=== PATIENT | female | born 1965 | race Caucasian/White ===

== ENCOUNTER 2017-02-22 17:20 | Emergency (ER) | payer MEDICARE, MEDICAID ==
--- NOTE | 2017-02-22 17:47 | EDM.PDOC ---
ED HPI GENERAL MEDICAL PROBLEM - General Stated Complaint: LEFT HAND NUMB Time Seen by Provider: 02/22/17 17:20 Source of Information: Reports: Patient History Limitations: Reports: No limitations - History of Present Illness INITIAL COMMENTS - FREE TEXT/NARRATIVE: 51 years old w f with IDDM and obesity, come to the ed due to numbness at her left lat forearm, radials nerve distribution since this morning. Pt denied trauma, did not sleep on her left arm. Pt had carpal tunnel repair on both wrists in the past, twice at her left wrist. 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 No H/O MS in the family. Onset: today Onset Date: 02/22/17 Onset Time: 07:00 Duration: Hour(s):, Constant, Intermittent Location: Reports: upper extremity, left Quality: Reports: Other (NUMBNESS) Severity: mild - Related Data Allergies Allergy/AdvReac Type Severity Reaction Status Date / Time latex Allergy Cannot Verified 02/22/17 17:35 Remember propoxyphene napsylate Allergy Itching Verified 02/22/17 17:35 [From SuzetteNeha] Home Meds: Home Meds Pregabalin [Lyrica] 150 mg PO BID 10/31/13 [History] Albuterol [Proventil Neb Soln] 3 ml INH Q4HR PRN 04/29/15 [History] Lisinopril 10 mg PO DAILY 04/29/15 [History] atorvaSTATin [Lipitor] 40 mg PO BEDTIME 04/29/15 [History] Acetaminophen with Codeine [Tylenol with Codeine #3 Tablet] 1 - 2 each PO QID PRN 09/11/15 [History] Aspirin [Adult Low Dose Aspirin EC] 81 mg PO DAILY 09/11/15 [History] Insulin Detemir [Levemir Flextouch] 52 units SQ BEDTIME 09/11/15 [History] Pregabalin [Lyrica] 50 mg PO BID 09/11/15 [History] sitaGLIPtin Phosphate [Januvia] 100 mg PO DAILY 09/11/15 [History] Past Medical History Other Cardiovascular History: ENLARGED HEART IN PAST HISTORY - Past Surgical History Other Musculoskeletal Surgeries/Procedures:: carpal tunnel surg Social & Family History - Tobacco Use Smoking Status *Q: Never Smoker Second Hand Smoke Exposure: Yes - Alcohol Use Days Per Week of Alcohol Use: 0 - Recreational Drug Use Recreational Drug Use: No ED ROS GENERAL - Review of Systems Review Of Systems: See Below Constitutional: Reports: no symptoms HEENT: Reports: No symptoms Respiratory: Reports: No Symptoms Cardiovascular: Reports: No symptoms Endocrine: Reports: no symptoms GI/Abdominal: Reports: No symptoms : Reports: no symptoms Musculoskeletal: Reports: no symptoms Skin: Reports: no symptoms Neurological: Reports: Other (numbness left lat forearm) Psychiatric: Reports: No symptoms Hematologic/Lymphatic: Reports: no symptoms Immunologic: Reports: no symptoms ED EXAM, GENERAL - Physical Exam Exam: See Below Exam Limited By: No limitations General Appearance: alert, WD/WN, no apparent distress, obese Eye Exam: bilateral eye: normal inspection Ears: normal external exam, normal canal, hearing grossly normal Ear Exam: bilateral ear: auricle normal, canal normal, TM normal Nose: normal inspection, normal mucosa, no blood Throat/Mouth: Normal inspection, Normal lips, Normal teeth, Normal gums, Normal oropharynx, Normal voice, No airway compromise Head: atraumatic, normocephalic Neck: normal inspection, supple, non-tender, full range of motion Respiratory/Chest: no respiratory distress, lungs clear, normal breath sounds, no accessory muscle use, chest non-tender Cardiovascular: normal peripheral pulses, regular rate, rhythm, no edema, no gallop, no JVD, no murmur, no rub GI/Abdominal: normal bowel sounds, soft, non tender, no organomegaly, no distention, no abnormal bruit, no mass (Female) Exam: Deferred Rectal (Female) Exam: Deferred Back Exam: normal inspection, full range of motion, NT Extremities: normal inspection, normal range of motion, non-tender, normal capillary refill, no pedal edema Neurological: alert, oriented, CN II-XII intact, normal cognition, normal gait, normal reflexes, sensory/motor deficit (sensitivity loss left forearm, radialis distribution) Psychiatric: normal affect, normal mood Skin Exam: Warm, Dry, Intact, Normal color, No rash Lymphatic: no adenopathy Course - Vital Signs Text/Narrative:: 51 years old w f with IDDM and obesity, come to the ed due to numbness at her left lat forearm, radials nerve distribution since this morning. Pt denied trauma, did not sleep on her left arm. Pt had carpal tunnel repair on both wrists in the past, twice at her left wrist. 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 No H/O MS in the family. No N/V/D. Pt did not check her BS in the past 3 days because she run out of glucometer strips. PE: Obesity, parentheses left lat forearm, radialis distribution. Labs: Glucose 560, Tx: Reg Insulin 7 units SQ. Impression: Dehydration, IDDM with Hyperglycemia. Obesity. Parenthesis radialis nerve distribution left arm. Reexam: accu check 451, improved Plan: D/C with instructions Last Recorded V/S: Last Vital Signs Temp 37.2 C 02/22/17 17:20 Pulse 88 02/22/17 17:20 Resp 18 02/22/17 17:20 BP 142/77 H 02/22/17 17:20 Pulse Ox 95 02/22/17 17:20 - Orders/Labs/Meds Labs: Laboratory Tests 02/22/17 02/22/17 02/22/17 Range/Units 17:45 17:45 17:45 WBC 9.6 (4.5-12.0) X10-3/uL RBC 5.10 (3.23-5.20) x10(6)uL Hgb 15.3 (11.5-15.5) g/dL Hct 45.4 (30.0-51.3) % MCV 89.0 (80-96) fL MCH 29.9 (27.7-33.6) pg MCHC 33.6 (32.2-35.4) g/dL RDW 13.1 (11.5-15.5) % Plt Count 227 (125-369) X10(3)uL MPV 9.9 (7.4-10.4) fL Add Manual Diff Yes Neutrophils % (Manual) 88 H (46-82) % Band Neutrophils % 1 (0-6) % Lymphocytes % (Manual) 9 L (13-37) % Monocytes % (Manual) 2 L (4-12) % Sodium 134 L (135-145) mmol/L Potassium 4.5 D (3.5-5.3) mmol/L Chloride 98 L (100-110) mmol/L Carbon Dioxide 27 (23-29) mmol/L BUN 32 H (5-20) mg/dL Creatinine 1.0 (0.6-1.3) mg/dL Est Cr Clr Drug Dosing 72.78 mL/min Estimated GFR (MDRD) 59 L (>60) BUN/Creatinine Ratio 32.0 H (9-20) Glucose 560 H* D (80-116) mg/dL Hemoglobin A1c (4.0-6.0) % Calcium 9.2 (8.6-10.2) mg/dL B-Natriuretic Peptide < 5 (0-100) pg/mL 02/22/17 Range/Units 17:45 WBC (4.5-12.0) X10-3/uL RBC (3.23-5.20) x10(6)uL Hgb (11.5-15.5) g/dL Hct (30.0-51.3) % MCV (80-96) fL MCH (27.7-33.6) pg MCHC (32.2-35.4) g/dL RDW (11.5-15.5) % Plt Count (125-369) X10(3)uL MPV (7.4-10.4) fL Add Manual Diff Neutrophils % (Manual) (46-82) % Band Neutrophils % (0-6) % Lymphocytes % (Manual) (13-37) % Monocytes % (Manual) (4-12) % Sodium (135-145) mmol/L Potassium (3.5-5.3) mmol/L Chloride (100-110) mmol/L Carbon Dioxide (23-29) mmol/L BUN (5-20) mg/dL Creatinine (0.6-1.3) mg/dL Est Cr Clr Drug Dosing mL/min Estimated GFR (MDRD) (>60) BUN/Creatinine Ratio (9-20) Glucose (80-116) mg/dL Hemoglobin A1c 10.9 H (4.0-6.0) % Calcium (8.6-10.2) mg/dL B-Natriuretic Peptide (0-100) pg/mL Meds: Medications Discontinued Medications Generic Name Dose Route Start Last Admin Trade Name Freq PRN Reason Stop Dose Admin Insulin Human Regular 7 unit 02/22/17 18:02 02/22/17 18:09 Humulin R SUBCUT 02/22/17 18:03 7 units ONETIME STA Administration Protocol Departure - Departure Time of Disposition: 19:00 Disposition: Home, Self-Care 01 Condition: good Clinical Impression: Paresthesia Hyperglycemia due to type 2 diabetes mellitus 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 Please come back to the ed if your symptoms get worse acutely.
[2017-02-22] MEDS ORDERED: Insulin Regular, Human 100 Units/ML 3 ML Vial SUBCUT STA (18:02)
[2017-02-22 19:15] VITALS: BP 132/83
== END 2017-02-22 19:13 | disposition home or self-care (01) ==
LOC: FB.ED 17:20
DX: E11.65 Type 2 diabetes mellitus with hyperglycemia (principal); E86.0 Dehydration; R20.9 Unspecified disturbances of skin sensation; E66.9 Obesity, unspecified; Z91.040 Latex allergy status; Z88.8 Allergy status to other drugs, medicaments and biological substances; Z79.82 Long term (current) use of aspirin; Z79.4 Long term (current) use of insulin; Z79.899 Other long term (current) drug therapy
CPT/HCPCS: 36415; 80048; 82962; 83036; 83880; 85025; 96372; 99283; J1815

== ENCOUNTER 2018-03-20 17:06 | Emergency (ER) | payer MEDICARE, MEDICAID ==
[2018-03-20] MEDS ORDERED: Aspirin 81 MG Tab.EC PO ONE ×2 (17:39→17:47)
[2018-03-20] MEDS ORDERED: Aspirin 81 MG Tab.Chew PO ONE ×2 (17:45→17:50)
[2018-03-20] MEDS ORDERED: Isosorbide Mononitrate 30 MG Tab.ER PO ONE ×2 (18:56→18:57)
[2018-03-20] MEDS ORDERED: Potassium Chloride 20 MEQ Tab.ER PO ONE (19:12)
[2018-03-20 19:22] VITALS: BP 132/84
--- NOTE | 2018-03-23 12:04 | CR ---
INDICATION: Chest pain. CHEST: An AP upright view of the chest was obtained portable, 03/20/2018, and compared with 04/29/2015 and 06/19/2012. The heart appeared enlarged. The aorta is slightly tortuous. Overlying EKG leads are noted. A definite active infiltrate or effusion was not identified. Evidence of exogenous obesity is noted. IMPRESSION: 1. Probable increase in heart size - ASHD. 2. Exogenous obesity. MTDD
--- NOTE | 2018-03-24 15:31 | ER ---
DATE SEEN: 03/20/2018 TIME SEEN: The patient was seen at 1540 hours. HISTORY OF PRESENT ILLNESS: This 52-year-old woman comes in with chest pain, onset 0800 hours, this morning. This involved more of her left pectoral region and radiated up to her shoulder, has been on and off through the last 10 hours. Ibuprofen did not make any difference. PAST MEDICAL HISTORY: She has history of asthma, gastritis, hemorrhoids, diabetes, fibromyalgia, kidney stones, and dyslipidemia. CURRENT MEDICATIONS: 1. Liraglutide - dipeptidyl peptidase inhibitor-incretin that increases insulin secretion. 2. Aspirin 81 mg. 3. Albuterol p.r.n. 4. Acetaminophen with codeine. 5. Atorvastatin 40 mg daily. 6. Lyrica 200 mg t.i.d. for her chronic back pain. 7. Lisinopril. 8. Insulin Levemir. The patient has not experienced diaphoresis or shortness of breath with the chest pain. No history of VTEs or long distance driving or airplane or stationary position or lying in bed for 3 days. The patient denies fever. She has a slight cough. She weighs 312 pounds. ALLERGIES: Latex and Darvocet. OTHER PAST MEDICAL HISTORY: Cyst on the kidneys, renal stone, asthma, gastritis, GERD without esophagitis, hemorrhoids, diabetes mellitus caused hyperglycemia. REVIEW OF SYSTEMS: Otherwise negative. PHYSICAL EXAMINATION: VITAL SIGNS: Blood pressure 148/81, heart rate 95, respirations 17, oxygen saturation 98%, and temperature 36.6 degrees centigrade. The patient weighs 141.5 kg. BMI is 44.8. GENERAL: This overweight pleasant woman is attended by her and her daughter. HEENT: PERRLA intact. Pharynx without abnormality. NECK: Supple. LUNGS: Clear without rales or rhonchi. HEART: S1, S2. No murmur. Distant heart sounds because of increased obesity. ABDOMEN: Nontender. No guarding. No abdominal discomfort. EXTREMITIES: Without edema. No tenderness of the vascular structures. IMAGING: EKG sinus rhythm. EKG notes multiple PVCs, but there are no PVCs on the EKG and I crossed that out. There is one premature atrial complex, but not ventricular complexes. Short VA interval of 52 microseconds. Q-waves in II and aVF suggesting marked [place] of indeterminate age. LABORATORY FINDINGS: Hemoglobin 14, white count 5300, PMNs 58, lymphocytes 34, and monos 7. Potassium 2.9 (hypokalemia), BUN 23, creatinine 1.2, GFR 47 with BUN creatinine ratio of 19, no suggestion of dehydration. 364 glucose. Troponin less than 0.017. IMAGING: Chest x-ray without cardiomegaly or infiltrate. ASSESSMENT AND PLAN: 1. Nonspecific chest pain, etiology indeterminate. 2. The patient is at risk for myocardial disease because of her morbid obesity. She is given a tablet of Imdur, 1 tablet, 30 mg daily. Trial for a week. Ten tablets prescribed. 3. Follow up with doctor in a week. Walk 1 mile daily. I advised her that walking 1 mile a day is like walking 1 mile away from her fpc. If she chooses not to do that, she is closer to the fpc at a very early age or premature cardiovascular demise. /[id number] LOWELL/ERIK
== END 2018-03-20 19:35 | disposition home or self-care (01) ==
LOC: FB.ED 17:06
DX: R07.9 Chest pain, unspecified (principal); E66.01 Morbid (severe) obesity due to excess calories; E11.9 Type 2 diabetes mellitus without complications; E78.5 Hyperlipidemia, unspecified; Z91.040 Latex allergy status; Z88.8 Allergy status to other drugs, medicaments and biological substances; Z79.899 Other long term (current) drug therapy; Z68.41 Body mass index [BMI] 40.0-44.9, adult; Z79.82 Long term (current) use of aspirin
CPT/HCPCS: 36415; 71045; 80053; 84484; 85025; 85379; 93005; 99285; A9270

== ENCOUNTER 2019-04-30 10:11 | Emergency (ER) | payer MEDICARE, MEDICAID ==
--- NOTE | 2019-04-30 10:19 | EDM.PDOC ---
ED HPI GENERAL MEDICAL PROBLEM - General Stated Complaint: FACE DROOP Time Seen by Provider: 04/30/19 10:26 Source of Information: Reports: Patient, Family History Limitations: Reports: No Limitations - History of Present Illness INITIAL COMMENTS - FREE TEXT/NARRATIVE: 54 y.o.w.f with H/O HTN and High cholesterol, non smoker, woke up at about 7 am with a right droopy face and right sided weakness right upper and right lower extremity. Pt want to bed last night at about 9 pm with H/A right temp area and blurred vision right eye. omn arrival to the ED she had a right facial droop, unable to hold her right extremities up for more then 2 sec with a right pronator drift. F n and FF test area positive at her right side. She is OX3 Her Temp headache is minor. Her NIH score was 10 as per nurse Ortiz BP was 145/85 RR 18 Pule ox 99% on RA pulse 88 Temp 98.7 Onset Date: 04/29/19 Onset Time: 19:00 Duration: Hour(s):, Intermittent Location: Reports: Head, Upper Extremity, Right, Lower Extremity, Right Quality: Reports: Ache, Dull Severity: Mild Improves with: Reports: Rest Worsens with: Reports: Movement Context: Reports: Other (woke up with ayfacial droop and right sided weakness) Associated Symptoms: Reports: Headaches, Weakness (right upper an lower extremity) - Related Data Allergies Allergy/AdvReac Type Severity Reaction Status Date / Time latex Allergy Cannot Verified 04/30/19 10:59 Remember propoxyphene napsylate Allergy Itching Verified 04/30/19 10:59 [From Mary Beth] Home Meds: Home Meds Lisinopril 10 mg PO DAILY 04/29/15 [History] atorvaSTATin [Lipitor] 40 mg PO BEDTIME 04/29/15 [History] Insulin Detemir [Levemir Flextouch] 52 units SQ BEDTIME 09/11/15 [History] Isosorbide Mononitrate [Imdur] 30 mg PO DAILY #30 tab.er 03/20/18 [Rx] Pregabalin [Lyrica] 200 mg PO TID 03/20/18 [History] .Ozempin 04/30/19 [History] Past Medical History HEENT History: Reports: Impaired Vision Cardiovascular History: Reports: High Cholesterol, Hypertension, Other (See Below) Other Cardiovascular History: enlarged heart 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, COPD [employer]ATE History: Reports: Musculoskeletal History: Reports: Fibromyalgia, Osteoarthritis Psychiatric History: Reports: Anxiety Endocrine/Metabolic History: Reports: Diabetes, Type II - Infectious Disease History Infectious Disease History: Reports: MRSA - Past Surgical History Musculoskeletal Surgical History: Reports: Knee Replacement Other Musculoskeletal Surgeries/Procedures:: coby knee replacement Social & Family History - Family History Family Medical History: Unobtainable - Caffeine Use Caffeine Use: Reports: Soda ED ROS GENERAL - Review of Systems Review Of Systems: See Below Constitutional: Reports: No Symptoms HEENT: Reports: No Symptoms Respiratory: Reports: No Symptoms Cardiovascular: Reports: No Symptoms Endocrine: Reports: No Symptoms GI/Abdominal: Reports: No Symptoms : Reports: No Symptoms Musculoskeletal: Reports: No Symptoms Skin: Reports: No Symptoms Neurological: Reports: Dizziness, Numbness (right face), Paresthesia (rightface) , Trouble Speaking, Weakness (right extremities) Psychiatric: Reports: No Symptoms Hematologic/Lymphatic: Reports: No Symptoms Immunologic: Reports: No Symptoms ED EXAM, NEURO - Physical Exam Exam: See Below Exam Limited By: Physical Impairment General Appearance: Alert, WD/WN, Mild Distress, Obese Eye Exam: Bilateral Eye: Normal Inspection Ears: Normal External Exam Nose: Normal Inspection, Normal Mucosa, No Blood Throat/Mouth: Normal Inspection, Normal Lips, Normal Voice, No Airway Compromise , Other (no teeth) Head Exam: Atraumatic, Normocephalic Neck: Normal Inspection, Supple, Non-Tender Respiratory/Chest: No Respiratory Distress, Lungs Clear, Normal Breath Sounds, Chest Non-Tender Cardiovascular: Normal Peripheral Pulses, Regular Rate, Rhythm, No Edema, No Gallop, No Murmur GI/Abdominal: Normal Bowel Sounds, Soft, Non-Tender, No Organomegaly, No Mass, Pelvis Stable (Female) Exam: Deferred Rectal (Female) Exam: Deferred Neurological: Alert, Ataxia, Abnormal Finger to Nose, Abnormal Sensation (right face), Difficulty Walking Back Exam: Normal Inspection, Full Range of Motion Extremities: Normal Inspection, Normal Range of Motion Psychiatric: Normal Affect, Normal Mood Skin Exam: Warm, Dry, Intact, No Rash EKG INTERPRETATION EKG Date: 04/30/19 Time: 10:45 Rhythm: NSR Rate (Beats/Min): 88 Randall: Normal P-Wave: Present QRS: Normal ST-T: Normal QT: Normal Comparison: NA - No Prior EKG Course - Vital Signs Text/Narrative:: 54 y.o.w.f with H/O HTN and High cholesterol, non smoker, woke up at about 7 am with a right droopy face and right sided weakness right upper and right lower extremity. Pt want to bed last night at about 9 pm with H/A right temp area and blurred vision right eye. omn arrival to the ED she had a right facial droop, unable to hold her right extremities up for more then 2 sec with a right pronator drift. F n and FF test area positive at her right side. She is OX3 Her Temp headache is minor. Her NIH score was 10 as per nurse Ortiz BP was 145/85 RR 18 Pule ox 99% on RA pulse 88 Temp 98.7 PE: WNWD W F wit right sided facial droop, weakness right extremities with a pronator drift R arm. Lat time Nl 7 pm last night. Last food intake 7 pm last night, EOMI, right periorbital/temp discomfort. Imaging: CT Head w/o contrast: NAD as per RAD Labs: CBC nl HDL 38 Cholesterol 212 Chol/HDL 5.6 Tricl 165 K 3.4 BUN 24 Cr 1.2 GFR 43 Gkc 155 Impression: CVA vs TIA Tx: ASA 10.45 am Consultation: Dr. Chavez, Neurologist, [facility]: ASA ok, Send to [facility] Reexam: Pt was ambulating better, articulation was improving Plan: Transfer by EMS to [facility] - Orders/Labs/Meds Labs: Laboratory Tests 04/30/19 04/30/19 04/30/19 Range/Units 10:18 10:25 10:25 WBC 4.7 (4.5-12.0) X10-3/uL RBC 3.93 (3.23-5.20) x10(6)uL Hgb 12.4 (11.5-15.5) g/dL Hct 35.4 (30.0-51.3) % MCV 89.9 (80-96) fL MCH 31.6 (27.7-33.6) pg MCHC 35.1 (32.2-35.4) g/dL RDW 13.1 (11.5-15.5) % Plt Count 190 (125-369) X10(3)uL MPV 8.5 (7.4-10.4) fL Neut % (Auto) 61.2 (46-82) % Lymph % (Auto) 29.8 (13-37) % Cloud % (Auto) 7.8 (4-12) % Eos % (Auto) 0 L (1.0-5.0) % Baso % (Auto) 1 (0-2) % Neut # (Auto) 2.9 (1.6-8.3) # Lymph # (Auto) 1.4 (0.6-5.0) # Cloud # (Auto) 0.4 (0.0-1.3) # Eos # (Auto) 0.0 (0.0-0.8) # Baso # (Auto) 0.0 (0.0-0.2) # ESR 18 (0-20) mm/hr PT 10.0 (8.7-11.1) INR 1.03 (0.89-1.13) Sodium (135-145) mmol/L Potassium (3.5-5.3) mmol/L Chloride (100-110) mmol/L Carbon Dioxide (21-32) mmol/L BUN (7-18) mg/dL Creatinine (0.55-1.02) mg/dL Est Cr Clr Drug Dosing Estimated GFR (MDRD) (>60) BUN/Creatinine Ratio (9-20) Glucose (80-116) mg/dL POC Glucose 159 H D (80-116) mg/dL Calcium (8.6-10.2) mg/dL Triglycerides (15-150) mg/dL Cholesterol (50-200) mg/dL LDL Cholesterol Direct (60-130) mg/dL HDL Cholesterol (40-75) mg/dL Cholesterol/HDL Ratio (0-5) 04/30/19 04/30/19 Range/Units 10:25 10:25 WBC (4.5-12.0) X10-3/uL RBC (3.23-5.20) x10(6)uL Hgb (11.5-15.5) g/dL Hct (30.0-51.3) % MCV (80-96) fL MCH (27.7-33.6) pg MCHC (32.2-35.4) g/dL RDW (11.5-15.5) % Plt Count (125-369) X10(3)uL MPV (7.4-10.4) fL Neut % (Auto) (46-82) % Lymph % (Auto) (13-37) % Cloud % (Auto) (4-12) % Eos % (Auto) (1.0-5.0) % Baso % (Auto) (0-2) % Neut # (Auto) (1.6-8.3) # Lymph # (Auto) (0.6-5.0) # Cloud # (Auto) (0.0-1.3) # Eos # (Auto) (0.0-0.8) # Baso # (Auto) (0.0-0.2) # ESR (0-20) mm/hr PT (8.7-11.1) INR (0.89-1.13) Sodium 145 (135-145) mmol/L Potassium 3.4 L (3.5-5.3) mmol/L Chloride 106 (100-110) mmol/L Carbon Dioxide 28 (21-32) mmol/L BUN 24 H (7-18) mg/dL Creatinine 1.3 H (0.55-1.02) mg/dL Est Cr Clr Drug Dosing TNP Estimated GFR (MDRD) 43 L (>60) BUN/Creatinine Ratio 18.5 (9-20) Glucose 155 H D (80-116) mg/dL POC Glucose (80-116) mg/dL Calcium 9.2 (8.6-10.2) mg/dL Triglycerides 162 H (15-150) mg/dL Cholesterol 212 H (50-200) mg/dL LDL Cholesterol Direct 121 (60-130) mg/dL HDL Cholesterol 38 L (40-75) mg/dL Cholesterol/HDL Ratio 5.6 H (0-5) Meds: Medications Discontinued Medications Generic Name Dose Route Start Last Admin Trade Name Freq PRN Reason Stop Dose Admin Aspirin 324 mg 04/30/19 10:57 04/30/19 10:59 Aspirin PO 04/30/19 10:58 324 mg ONETIME ONE Administration Sodium Chloride 10 ml 04/30/19 11:02 04/30/19 10:20 Saline Flush FLUSH 10 ml ASDIRECTED PRN Administration Keep Vein Open Departure - Departure Time of Disposition: 09:00 Disposition: DC/Tfer to Acute Hospital 02 Condition: Fair Clinical Impression: CVA (cerebral vascular accident) Qualifiers: Laterality of affected vessel: unspecified - Discharge Information Referrals: Nigel Cagle MD [Primary Care Provider] - Forms: ED Department Discharge
[2019-04-30] MEDS ORDERED: Aspirin 81 MG Tab.Chew PO ONE (10:57)
[2019-04-30] MEDS ORDERED: Sodium Chloride 0.9% 10 ML Syringe FLUSH PRN (11:02)
--- NOTE | 2019-04-30 11:16 | CT ---
INDICATION: Right facial droop, right arm weakness. CT HEAD WITHOUT CONTRAST: Spiral examination of the brain was obtained - no comparisons. Total exam DLP = 1,348.07 mGy-cm. Thickening of the lining of the left maxillary antrum is noted. Thickening of the lining of one ethmoidal air cell is noted on the right. Paranasal sinuses were otherwise unremarkable. Mastoid air cells appear to be well-aerated. No cranial abnormality was seen. Calcifications are noted at the left vertebral artery. No shift of midline structures or ventricular abnormalities were identified. No definite abnormal areas of density were identified - no bleeding site or hematoma was seen. IMPRESSION: 1. No acute intracranial abnormality. 2. Calcification noted in left vertebral artery, compatible with atherosclerotic change. 3. Thickening of the lining of the left maxillary antrum and a right ethmoidal air cell. Report was called to Dr. Chan at 1020 hours on 04/30/19. [facility]
== END 2019-04-30 11:10 ==
LOC: FB.ED 10:11
DX: I63.9 Cerebral infarction, unspecified (principal); I10 Essential (primary) hypertension; E78.00 Pure hypercholesterolemia, unspecified; E11.9 Type 2 diabetes mellitus without complications; J44.9 Chronic obstructive pulmonary disease, unspecified; Z79.4 Long term (current) use of insulin; Z79.899 Other long term (current) drug therapy; Z88.8 Allergy status to other drugs, medicaments and biological substances; Z91.040 Latex allergy status
CPT/HCPCS: 36415; 70450; 80048; 80061; 82962; 85025; 85610; 85651; 93005; 99285; A9270

== ENCOUNTER 2019-07-24 11:39 | Emergency (ER) | payer MEDICARE, MEDICAID ==
--- NOTE | 2019-07-24 12:15 | EDM.PDOC ---
ED HPI GENERAL MEDICAL PROBLEM - General Chief Complaint: Respiratory Problem Stated Complaint: SOB, COUGH, CHEST PAIN Time Seen by Provider: 07/24/19 12:12 Source of Information: Reports: Patient History Limitations: Reports: No Limitations - History of Present Illness INITIAL COMMENTS - FREE TEXT/NARRATIVE: Presents with non-productive cough and chest pain only with cough x 2 days. Denies SOB. Patient has h/o COPD and Asthma, but not CAD. Duration: Day(s): (2) Quality: Reports: Dull Severity: Mild - Related Data Allergies Allergy/AdvReac Type Severity Reaction Status Date / Time latex Allergy Cannot Verified 07/24/19 12:12 Remember propoxyphene napsylate Allergy Itching Verified 07/24/19 12:12 [From Mary Beth] Home Meds: Home Meds Lisinopril 10 mg PO DAILY 04/29/15 [History] atorvaSTATin [Lipitor] 40 mg PO BEDTIME 04/29/15 [History] Insulin Detemir [Levemir Flextouch] 52 units SQ BEDTIME 09/11/15 [History] Isosorbide Mononitrate [Imdur] 30 mg PO DAILY #30 tab.er 03/20/18 [Rx] Pregabalin [Lyrica] 200 mg PO TID 03/20/18 [History] .Ozempin 0.5 mg SUBCUT WEEKLY 04/30/19 [History] Past Medical History HEENT History: Reports: Impaired Vision Cardiovascular History: Reports: High Cholesterol, Hypertension, Other (See Below) Other Cardiovascular History: enlarged heart 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, 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: Musculoskeletal History: Reports: Fibromyalgia, Osteoarthritis Psychiatric History: Reports: Anxiety Endocrine/Metabolic History: Reports: Diabetes, Type II - Infectious Disease History Infectious Disease History: Reports: MRSA - Past Surgical History Musculoskeletal Surgical History: Reports: Knee Replacement Other Musculoskeletal Surgeries/Procedures:: coby knee replacement Social & Family History - Family History Family Medical History: Unobtainable - Tobacco Use Tobacco Use Within Last Twelve Months: No - Caffeine Use Caffeine Use: Reports: Soda ED ROS GENERAL - Review of Systems Review Of Systems: ROS reveals no pertinent complaints other than HPI. ED EXAM, GENERAL - Physical Exam Exam: See Below Exam Limited By: No Limitations General Appearance: Alert, WD/WN, No Apparent Distress Ears: Normal External Exam Nose: Normal Inspection Throat/Mouth: No Airway Compromise Head: Atraumatic, Normocephalic Neck: Full Range of Motion Respiratory/Chest: No Respiratory Distress, Lungs Clear Cardiovascular: Regular Rate, Rhythm, No Murmur, Other (left chest wall is tender) GI/Abdominal: No Distention Back Exam: Normal Inspection, Full Range of Motion Extremities: Normal Inspection Neurological: Alert, Normal Cognition Psychiatric: Normal Affect, Normal Mood Skin Exam: Warm, Dry, Intact Course - Vital Signs Text/Narrative:: BP 149/83, HR 82, T 98.3, Sa02 100% RA - Orders/Labs/Meds Orders: Active Orders 24 hr Category Date Time Status EKG Documentation Completion [RC] ASDIRECTED Care 07/24/19 12:02 Active CXR [Chest 2V] [CR] Stat Exams 07/24/19 12:12 Taken EKG 12 Lead [EK] Stat Ther 07/24/19 12:02 Ordered - Radiology Interpretation Free Text/Narrative:: CXR: No acute process (ED provider interpretation). Departure - Departure Time of Disposition: 13:37 Disposition: Home, Self-Care 01 Condition: Good Clinical Impression: Costochondritis, Viral URI - Discharge Information *PRESCRIPTION DRUG MONITORING PROGRAM REVIEWED*: No *COPY OF PRESCRIPTION DRUG MONITORING REPORT IN PATIENT SEVEN: Not Applicable Instructions: Costochondritis, [id number], Upper Respiratory Infection, Adult , [id number] Referrals: Nigel Cagle MD [Primary Care Provider] - Forms: ED Department Discharge Additional Instructions: Take OTC Ibuprofen as needed to control pain. Take OTC Mucinex as needed to control cough. Follow up with your primary physician in 2-3 days if symptoms don 't improve. Return to the ER if symptoms worsen. - My Orders Last 24 Hours: My Active Orders 07/24/19 12:02 EKG Documentation Completion [RC] ASDIRECTED EKG 12 Lead [EK] Stat 07/24/19 12:12 CXR [Chest 2V] [CR] Stat - Assessment/Plan Last 24 Hours: My Active Orders 07/24/19 12:02 EKG Documentation Completion [RC] ASDIRECTED EKG 12 Lead [EK] Stat 07/24/19 12:12 CXR [Chest 2V] [CR] Stat
[2019-07-24 15:34] VITALS: BP 149/84
== END 2019-07-24 14:00 | disposition home or self-care (01) ==
LOC: FB.ED 11:39
DX: M94.0 Chondrocostal junction syndrome [Tietze] (principal); J06.9 Acute upper respiratory infection, unspecified; E11.9 Type 2 diabetes mellitus without complications; J44.9 Chronic obstructive pulmonary disease, unspecified; I10 Essential (primary) hypertension; E78.00 Pure hypercholesterolemia, unspecified; Z79.4 Long term (current) use of insulin; Z79.899 Other long term (current) drug therapy; Z91.040 Latex allergy status; Z88.8 Allergy status to other drugs, medicaments and biological substances
CPT/HCPCS: 71046; 93005; 99285-25

== ENCOUNTER 2019-11-26 19:09 | Emergency (ER) | payer MEDICARE, MEDICAID ==
--- NOTE | 2019-11-26 19:46 | EDM.PDOC ---
ED HPI GENERAL MEDICAL PROBLEM - General Chief Complaint: Upper Extremity Injury/Pain Stated Complaint: hurt arm Time Seen by Provider: 11/26/19 19:15 History Limitations: Reports: No Limitations - History of Present Illness INITIAL COMMENTS - FREE TEXT/NARRATIVE: Patient presented to the ED because of right forearm pain. She apparently got up from the tub, slipped and fell. She landed on her rt forearm. right forearm Pain Score (Numeric/FACES): 10 - Related Data Allergies Allergy/AdvReac Type Severity Reaction Status Date / Time latex Allergy Cannot Verified 07/24/19 12:12 Remember propoxyphene napsylate Allergy Itching Verified 07/24/19 12:12 [From Suzette-N] Home Meds: Home Meds Lisinopril 10 mg PO DAILY 04/29/15 [History] atorvaSTATin [Lipitor] 40 mg PO BEDTIME 04/29/15 [History] Insulin Detemir [Levemir Flextouch] 52 units SQ BEDTIME 09/11/15 [History] Isosorbide Mononitrate [Imdur] 30 mg PO DAILY #30 tab.er 03/20/18 [Rx] Pregabalin [Lyrica] 200 mg PO TID 03/20/18 [History] .Ozempin 0.5 mg SUBCUT WEEKLY 04/30/19 [History] Past Medical History HEENT History: Reports: Impaired Vision Cardiovascular History: Reports: High Cholesterol, Hypertension, Other (See Below) Other Cardiovascular History: enlarged heart 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, 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: Musculoskeletal History: Reports: Fibromyalgia, Osteoarthritis Psychiatric History: Reports: Anxiety Endocrine/Metabolic History: Reports: Diabetes, Type II - Infectious Disease History Infectious Disease History: Reports: MRSA - Past Surgical History Musculoskeletal Surgical History: Reports: Knee Replacement Other Musculoskeletal Surgeries/Procedures:: coby knee replacement Social & Family History - Family History Family Medical History: Unobtainable - Tobacco Use Smoking Status *Q: Never Smoker - Caffeine Use Caffeine Use: Reports: Soda Review of Systems - Review of Systems Review Of Systems: See Below Constitutional: Reports: No Symptoms Eyes: Reports: No Symptoms Ears: Reports: No Symptoms Nose: Reports: No Symptoms Mouth/Throat: Reports: No Symptoms Respiratory: Reports: No Symptoms Cardiovascular: Reports: No Symptoms GI/Abdominal: Reports: No Symptoms Genitourinary: Reports: No Symptoms Musculoskeletal: Reports: No Symptoms Skin: Reports: Bruising ED EXAM, GENERAL - Physical Exam Exam: See Below Exam Limited By: No Limitations Eye Exam: Bilateral Eye: PERRL Nose: Normal Inspection, Normal Mucosa, No Blood Throat/Mouth: Normal Inspection, Normal Lips Head: Atraumatic, Normocephalic Respiratory/Chest: No Respiratory Distress, Lungs Clear, Normal Breath Sounds Cardiovascular: Normal Peripheral Pulses, Regular Rate, Rhythm, No Edema, No Gallop, No JVD GI/Abdominal: Normal Bowel Sounds, Soft, Non-Tender Extremities: Other (tenderness,swelling and bruising right forearm) Course - Vital Signs Last Recorded V/S: Last Vital Signs Temp 36.4 C 11/26/19 19:09 Pulse 90 11/26/19 19:09 Resp 17 11/26/19 19:09 BP 171/88 H 11/26/19 19:09 Pulse Ox 100 11/26/19 19:09 - Orders/Labs/Meds Orders: Active Orders 24 hr Category Date Time Status Forearm 2V Rt [CR] Stat Exams 11/26/19 19:36 Taken Departure - Departure Time of Disposition: 19:45 Disposition: Home, Self-Care 01 Condition: Good Clinical Impression: Contusion - Discharge Information Instructions: Contusion, [id number] Referrals: Sagrario Molina NP [Primary Care Provider] - Forms: ED Department Discharge Additional Instructions: please read discharge instructions on contusion apply ice take ibuprofen 800 mg with tylenol 1000 mg every 8 hours as needed for pain follow up as needed Sepsis Event Note - Evaluation Sepsis Screening Result: No Definite Risk - Focused Exam Vital Signs: Vital Signs Temp Pulse Resp BP Pulse Ox 11/26/19 19:09 36.4 C 90 17 171/88 H 100 Date Exam was Performed: 11/26/19 Time Exam was Performed: 19:47 - My Orders Last 24 Hours: My Active Orders 11/26/19 19:36 Forearm 2V Rt [CR] Stat - Assessment/Plan Last 24 Hours: My Active Orders 11/26/19 19:36 Forearm 2V Rt [CR] Stat
[2019-11-26 22:18] VITALS: BP 140/76; PULSE 89
== END 2019-11-26 19:50 | disposition home or self-care (01) ==
LOC: FB.ED 19:09
DX: S50.11XA Contusion of right forearm, initial encounter (principal); E11.9 Type 2 diabetes mellitus without complications; I10 Essential (primary) hypertension; Z91.040 Latex allergy status; Z88.8 Allergy status to other drugs, medicaments and biological substances; Z79.899 Other long term (current) drug therapy; Z79.4 Long term (current) use of insulin; W01.0XXA Fall on same level from slipping, tripping and stumbling without subsequent striking against object, initial encounter
CPT/HCPCS: 73090-RT; 99282; 99283-25

== ENCOUNTER 2021-05-19 10:50 | Emergency (ER) | payer MEDICARE, MEDICAID ==
[2021-05-19 11:04] VITALS: BP 144/97; PULSE 84
[2021-05-19] MEDS ORDERED: Tamsulosin 0.4 MG Cap.ER PO STA (11:09)
[2021-05-19] MEDS ORDERED: Ondansetron 4 MG Tab.DIS PO STA (11:09)
[2021-05-19] MEDS ORDERED: Morphine 4 MG/ML VIAL IM STA (11:09)
--- NOTE | 2021-05-19 11:15 | EDM.PDOC ---
ED HPI GENERAL MEDICAL PROBLEM - General Chief Complaint: Genitourinary Problem Stated Complaint: KIDNEY STONES Time Seen by Provider: 05/19/21 11:00 Source of Information: Reports: Patient History Limitations: Reports: No Limitations - History of Present Illness INITIAL COMMENTS - FREE TEXT/NARRATIVE: Patient presented to the ED because of left flank pain which started @ 3-4 am. The pain is sharp,9/10 with associated nausea but no vomiting. There is no fever, chills, urinary symptoms. She has a history of kidney stone the last one was 1 yr ago. Left Lower Flank Pain Score (Numeric/FACES): 9 - Related Data Allergies Allergy/AdvReac Type Severity Reaction Status Date / Time latex Allergy Cannot Verified 07/24/19 12:12 Remember propoxyphene napsylate Allergy Itching Verified 07/24/19 12:12 [From Mary Beth] Home Meds: Home Meds Lisinopril 10 mg PO DAILY 04/29/15 [History] atorvaSTATin [Lipitor] 40 mg PO BEDTIME 04/29/15 [History] Hydrocodone/Acetaminophen [Hydrocodon-Acetaminophen 5-325] 1 each PO Q4H PRN #10 tablet 05/19/21 [Rx] Multivitamin 1 tab PO DAILY 05/19/21 [History] Ondansetron [Zofran ODT] 4 mg PO Q4H PRN #5 tab.dis 05/19/21 [Rx] Semaglutide [Ozempic] 1 mg SQ DAILY 05/19/21 [History] Sulfamethoxazole/Trimethoprim [Bactrim Ds Tablet] 1 each PO BID #6 tablet 05/19/21 [Rx] Tamsulosin HCl [Flomax] 0.4 mg PO DAILY #10 cap.er.24h 05/19/21 [Rx] Past Medical History HEENT History: Reports: Impaired Vision Cardiovascular History: Reports: High Cholesterol, Hypertension, Other (See Below) Other Cardiovascular History: enlarged heart 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, COPD Genitourinary History: Reports: Renal Calculus 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: Musculoskeletal History: Reports: Fibromyalgia, Osteoarthritis Psychiatric History: Reports: Anxiety Endocrine/Metabolic History: Reports: Diabetes, Type II - Infectious Disease History Infectious Disease History: Reports: MRSA - Past Surgical History Musculoskeletal Surgical History: Reports: Knee Replacement Other Musculoskeletal Surgeries/Procedures:: coby knee replacement Social & Family History - Family History Family Medical History: No Pertinent Family History - Tobacco Use Tobacco Use Status *Q: Never Tobacco User - Caffeine Use Caffeine Use: Reports: None - Recreational Drug Use Recreational Drug Use: No ED ROS GENERAL - Review of Systems Review Of Systems: See Below Constitutional: Reports: No Symptoms HEENT: Reports: No Symptoms Respiratory: Reports: No Symptoms Cardiovascular: Reports: No Symptoms Endocrine: Reports: No Symptoms GI/Abdominal: Reports: Abdominal Pain, Nausea : Reports: No Symptoms Musculoskeletal: Reports: No Symptoms Skin: Reports: No Symptoms Neurological: Reports: No Symptoms Psychiatric: Reports: No Symptoms ED EXAM, RENAL/ - Physical Exam Exam: See Below Exam Limited By: No Limitations General Appearance: Alert, No Apparent Distress Ears: Normal External Exam, Normal Canal Nose: Normal Inspection, Normal Mucosa, No Blood Throat/Mouth: Normal Inspection, Normal Lips Head: Atraumatic, Normocephalic Neck: Normal Inspection, Supple, Non-Tender, Full Range of Motion Respiratory/Chest: No Respiratory Distress, Lungs Clear, Normal Breath Sounds Cardiovascular: Normal Peripheral Pulses, Regular Rate, Rhythm, No Edema, No Gallop GI/Abdominal: Normal Bowel Sounds, Soft, Other (left CVA T) Back Exam: Normal Inspection, Full Range of Motion Extremities: Normal Inspection, Normal Range of Motion Course - Vital Signs Text/Narrative:: Lab and CT result was reviewed and discussed with patient Refused IVF Morphine 4 mg IM x1 Zofran ODT 4 mg PO x1 Flomax 0.4 mg PO x1 Last Recorded V/S: Last Vital Signs Temp 36.1 C 05/19/21 10:50 Pulse 84 05/19/21 10:50 Resp 20 05/19/21 10:50 BP 144/97 H 05/19/21 10:50 Pulse Ox 98 05/19/21 10:50 - Orders/Labs/Meds Orders: Active Orders 24 hr Category Date Time Status Abdomen Pelvis wo Cont [CT] Stat Exams 05/19/21 11:08 Taken CULTURE URINE [RM] Stat Lab 05/19/21 11:14 Received Labs: Laboratory Tests 05/19/21 05/19/21 05/19/21 Range/Units 11:14 11:35 11:35 WBC 4.8 (3.0-10.3) x10-3/uL RBC 3.82 (3.60-5.20) x10(6)uL Hgb 12.1 (11.4-15.5) g/dL Hct 34.8 (34.2-48.2) % MCV 91.0 (76.7-100.5) fL MCH 31.6 (23.9-33.9) pg MCHC 34.7 (31.9-34.8) g/dL RDW 13.1 (12.3-16.5) % Plt Count 218 (151-488) x10(3)uL MPV 8.1 (7.1-12.4) fL Neut % (Auto) 62.5 (30.8-76.2) % Lymph % (Auto) 28.4 (18.4-52.1) % Robertson % (Auto) 8.2 (4.4-15.7) % Eos % (Auto) 0.1 L (0.6-8.1) % Baso % (Auto) 0.8 (0.2-1.5) % Neut # (Auto) 3.0 (1.5-6.3) x10-3/uL Lymph # (Auto) 1.4 (1.0-4.4) x10-3/uL Robertson # (Auto) 0.4 (0.3-1.0) x10-3/uL Eos # (Auto) 0.0 (0.0-0.8) x10-3/uL Baso # (Auto) 0.0 (0.0-0.1) x10-3/uL Sodium 143 (135-145) mmol/L Potassium 4.4 D (3.5-5.3) mmol/L Chloride 106 (100-110) mmol/L Carbon Dioxide 29 (21-32) mmol/L BUN 33 H (7-18) mg/dL Creatinine 1.5 H (0.55-1.02) mg/dL Est Cr Clr Drug Dosing 45.83 mL/min Estimated GFR (MDRD) 36 L (>60) BUN/Creatinine Ratio 22.0 H (9-20) Glucose 102 (80-116) mg/dL Calcium 9.0 (8.6-10.2) mg/dL Urine Color Yellow (YELLOW) Urine Appearance Slightly cloudy (CLEAR) Urine pH 5.0 (5.0-6.5) Ur Specific [place] 1.015 (1.010-1.025) Urine Protein 30 H (NEGATIVE) mg/dL Urine Glucose (UA) Normal (NORMAL) mg/dL Urine Ketones Negative (NEGATIVE) mg/dL Urine Occult Blood Large H (NEGATIVE) Urine Nitrite Negative (NEGATIVE) Urine Bilirubin Negative (NEGATIVE) Urine Urobilinogen Normal (NEGATIVE) mg/dL Ur Leukocyte Esterase Small H (NEGATIVE) U Hyaline Cast (Auto) Occasional H (NS) Urine RBC 20-30 H (0-5) Urine WBC 20-30 H (0-5) Ur Squamous Epith Cells Occasional (NS,R,O) Urine Bacteria Few H (NS) Urine Mucus Few H (NS) Meds: Medications Discontinued Medications Generic Name Dose Route Start Last Admin Trade Name Freq PRN Reason Stop Dose Admin Morphine Sulfate 4 mg 05/19/21 11:05/19/21 11:33 Morphine 4 Mg/Ml Vial IM 05/19/21 11:10 4 mg NOW STA Administration Ondansetron HCl 4 mg 05/19/21 11:05/19/21 11:32 Ondansetron 4 Mg Tab.Dis PO 05/19/21 11:10 4 mg NOW STA Administration Tamsulosin HCl 0.4 mg 05/19/21 11:09 05/19/21 11:30 Tamsulosin 0.4 Mg Cap.Er PO 05/19/21 11:10 0.4 mg NOW STA Administration Departure - Departure Time of Disposition: 12:20 Disposition: Home, Self-Care 01 Condition: Good Clinical Impression: Nephrolithiasis, UTI (urinary tract infection), Cholelithiasis, Kidney stone, UTI, Urinary tract infectious disease - Discharge Information Prescriptions: Sulfamethoxazole/Trimethoprim [Bactrim Ds Tablet] 1 each PO BID #6 tablet Tamsulosin HCl [Flomax] 0.4 mg PO DAILY #10 cap.er.24h Hydrocodone/Acetaminophen [Hydrocodon-Acetaminophen 5-325] 1 each PO Q4H PRN #10 tablet PRN Reason: Pain Ondansetron [Zofran ODT] 4 mg PO Q4H PRN #5 tab.dis PRN Reason: Nausea Instructions: Cholelithiasis, Kidney Stones, [id number], Urinary Tract Inf ection, Adult, [id number] Referrals: Nigel Cagle MD [Primary Care Provider] - Forms: ED Department Discharge Additional Instructions: Please read discharge instructions on kidney stone,UTI, gallbladder stone Increase oral fluids at least 2 liters a days Flomax 1 tablet daily until you pass out the stone Hydrocodone 5 mg, take 1-2 tablets every 4-6 hours as needed for pain Bactrim DS twice daily for 3 days Follow up if your pain persist Sepsis Event Note (ED) - Evaluation Sepsis Screening Result: No Definite Risk - Focused Exam Vital Signs: Vital Signs Temp Pulse Resp BP Pulse Ox 05/19/21 10:50 36.1 C 84 20 144/97 H 98 - My Orders Last 24 Hours: My Active Orders 05/19/21 11:08 Abdomen Pelvis wo Cont [CT] Stat 05/19/21 11:14 CULTURE URINE [RM] Stat - Assessment/Plan Last 24 Hours: My Active Orders 05/19/21 11:08 Abdomen Pelvis wo Cont [CT] Stat 05/19/21 11:14 CULTURE URINE [RM] Stat
== END 2021-05-19 12:30 | disposition home or self-care (01) ==
LOC: FB.ED 10:50
DX: N20.0 Calculus of kidney (principal); K80.50 Calculus of bile duct without cholangitis or cholecystitis without obstruction; N39.0 Urinary tract infection, site not specified; E78.00 Pure hypercholesterolemia, unspecified; I10 Essential (primary) hypertension; J44.9 Chronic obstructive pulmonary disease, unspecified; E11.9 Type 2 diabetes mellitus without complications; Z91.040 Latex allergy status; Z88.8 Allergy status to other drugs, medicaments and biological substances
CPT/HCPCS: 36415; 74176; 80048; 81001; 85025; 87086; 96372; 99283; 99284-25; A9270-GY; J2270

== ENCOUNTER 2021-06-09 19:55 | Emergency (ER) | payer MEDICARE, MEDICAID ==
[2021-06-09] MEDS ORDERED: Ondansetron 4 MG Tab.DIS PO ONE (19:56)
[2021-06-09] MEDS ORDERED: Acetaminophen/HYDROcodone 325-5 MG Tab PO ONE (19:56)
[2021-06-09] MEDS ORDERED: Sodium Chloride 0.9% 10 ML Syringe FLUSH PRN (20:21)
--- NOTE | 2021-06-09 20:21 | EDM.PDOC ---
ED HPI GENERAL MEDICAL PROBLEM - General Stated Complaint: sharp pain in right side Time Seen by Provider: 06/09/21 20:15 Source of Information: Reports: Patient History Limitations: Reports: No Limitations - History of Present Illness INITIAL COMMENTS - FREE TEXT/NARRATIVE: 56-year-old female who reports she has been having pain in her right upper quadrant, right flank and right mid back since Friday of last week. She was seen on Friday of last week by her primary provider and was felt to be having biliary colic related to her cholelithiasis and was referred to see Dr. Sun. The patient reports that since then she has had intermittent vomiting and continuing pain in her right upper quadrant and going to her right back. She reports the pain seems to be getting worse with time and she currently has pain that she rates as a 10/10. She had vomiting times one today but vomiting 2 yesterday she also reports she's had diarrhea 10-12 today. She did report a fever up to 101.3F on Friday of last week but none since that time. She has had no cough or difficulty breathing. She has had decreased oral intake and reports that her pain seems to be worse when she eats or drinks and she also has worsening diarrhea after trying to do either of these. The pain is a sharp pain and a sore pain. It does seem to begin in her right upper quadrant and radiated around to her right mid back. She states that she was given Tylenol #3 for her pain but she has run out of that medication. There are no other associated signs or symptoms. There are no other modifying factors. 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.) Right Upper Abdomen Pain Score (Numeric/FACES): 10 - Related Data Allergies Allergy/AdvReac Type Severity Reaction Status Date / Time latex Allergy Cannot Verified 06/09/21 20:11 Remember propoxyphene napsylate Allergy Itching Verified 06/09/21 20:11 [From Darvocet-N] Home Meds: Home Meds atorvaSTATin [Lipitor] 40 mg PO BEDTIME 04/29/15 [History] Hydrocodone/Acetaminophen [Hydrocodon-Acetaminophen 5-325] 1 each PO Q4H PRN #10 tablet 05/19/21 [Rx] Gabapentin [Neurontin] 100 mg PO BID 06/09/21 [History] Hydrocodone/Acetaminophen [Hydrocodon-Acetaminophen 5-325] 1 - 2 tab PO Q6H PRN #8 tablet 06/09/21 [Rx] Ondansetron [Zofran ODT] 4 mg PO Q6H PRN #6 tab.dis 06/09/21 [Rx] Semaglutide [Ozempic] 1 mg SQ WEEKLY 06/09/21 [History] Zolpidem Tartrate [Zolpidem Tartrate ER] 6.25 mg PO BEDTIME 06/09/21 [History] amLODIPine [Norvasc] 5 mg PO DAILY 06/09/21 [History] Past Medical History HEENT History: Reports: Impaired Vision Cardiovascular History: Reports: High Cholesterol, Hypertension, Other (See Below) Other Cardiovascular History: enlarged heart 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, COPD Genitourinary History: Reports: Renal Calculus Musculoskeletal History: Reports: Fibromyalgia, Osteoarthritis Psychiatric History: Reports: Anxiety, Depression Endocrine/Metabolic History: Reports: Diabetes, Type II - Infectious Disease History Infectious Disease History: Reports: MRSA - Past Surgical History Musculoskeletal Surgical History: Reports: Carpal Tunnel (Bilateral), Knee Replacement Other Musculoskeletal Surgeries/Procedures:: coby knee replacement Social & Family History - Tobacco Use Tobacco Use Status *Q: Unknown Ever Used Tobacco (Nonsmoker) - Caffeine Use Caffeine Use: Reports: Soda - Alcohol Use Alcohol Use History: No - Living Situation & Occupation Living situation: Reports: Social History Comment: 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 ED ROS GENERAL - Review of Systems Review Of Systems: See Below Constitutional: Reports: Fever (Earlier this week as mentioned above.), Malaise, Fatigue. Denies: Chills HEENT: Denies: Throat Pain, Throat Swelling Respiratory: Denies: Shortness of Breath, Cough Cardiovascular: Denies: Chest Pain, Palpitations Endocrine: Reports: Fatigue GI/Abdominal: Reports: Abdominal Pain, Diarrhea, Nausea, Vomiting : Reports: Flank Pain (On the right and in the right mid back.). Denies: Dysuria (He does have some intermittent pain with urination but nothing persistent.) Musculoskeletal: Reports: Back Pain Skin: Denies: Diaphoresis, Rash Neurological: Denies: Dizziness, Headache Hematologic/Lymphatic: Denies: Easy Bleeding, Easy Bruising ED EXAM, GI/ABD - Physical Exam Exam: See Below Exam Limited By: No Limitations General Appearance: Alert, Moderate Distress (Appears in some pain.), Obese Eyes: Bilateral: Normal Appearance (Sclera are anicteric.), EOMI Ears: Normal External Exam, Hearing Grossly Normal Nose: Normal Inspection, Normal Mucosa, No Blood Throat/Mouth: Normal Lips, Normal Voice, No Airway Compromise, Other (Dry mucous membranes.) Head: Atraumatic, Normocephalic Neck: Normal Inspection, Supple, Non-Tender, Full Range of Motion Respiratory/Chest: No Respiratory Distress, Lungs Clear, Normal Breath Sounds, No Accessory Muscle Use, Chest Non-Tender Cardiovascular: Normal Peripheral Pulses, Regular Rate, Rhythm, No Murmur GI/Abdominal Exam: Normal Bowel Sounds, Soft, No Mass, Tender (In the right upper quadrant and right flank) Back Exam: Normal Inspection, CVA Tenderness (R) Extremities: Normal Inspection, Normal Range of Motion, Non-Tender, No Pedal Edema, Normal Capillary Refill Neurological: Alert, Oriented, CN II-XII Intact, Normal Cognition, No Motor/Sensory Deficits Psychiatric: Normal Affect Skin Exam: Warm, Dry, Intact, Normal Color, No Rash Course - Vital Signs Last Recorded V/S: Last Vital Signs Temp 36.1 C 06/09/21 23:19 Pulse 86 06/09/21 23:19 Resp 18 06/09/21 23:19 BP 150/90 H 06/09/21 23:19 Pulse Ox 98 06/09/21 23:19 - Orders/Labs/Meds Orders: Active Orders 24 hr Category Date Time Status CULTURE URINE [RM] Stat Lab 06/09/21 20:30 Received Peripheral IV Insertion Adult [OM.PC] Routine Oth 06/09/21 20:21 Ordered Labs: Laboratory Tests 06/09/21 06/09/21 06/09/21 Range/Units 20:30 20:40 20:50 WBC 5.6 (3.0-10.3) x10-3/uL RBC 3.76 (3.60-5.20) x10(6)uL Hgb 11.9 (11.4-15.5) g/dL Hct 34.6 (34.2-48.2) % MCV 91.9 (76.7-100.5) fL MCH 31.7 (23.9-33.9) pg MCHC 34.5 (31.9-34.8) g/dL RDW 13.3 (12.3-16.5) % Plt Count 238 (151-488) x10(3)uL MPV 8.0 (7.1-12.4) fL Neut % (Auto) 63.8 (30.8-76.2) % Lymph % (Auto) 28.6 (18.4-52.1) % [place] % (Auto) 6.9 (4.4-15.7) % Eos % (Auto) 0.1 L (0.6-8.1) % Baso % (Auto) 0.6 (0.2-1.5) % Neut # (Auto) 3.6 (1.5-6.3) x10-3/uL Lymph # (Auto) 1.6 (1.0-4.4) x10-3/uL [place] # (Auto) 0.4 (0.3-1.0) x10-3/uL Eos # (Auto) 0.0 (0.0-0.8) x10-3/uL Baso # (Auto) 0.0 (0.0-0.1) x10-3/uL Sodium (135-145) mmol/L Potassium (3.5-5.3) mmol/L Chloride (100-110) mmol/L Carbon Dioxide (21-32) mmol/L BUN (7-18) mg/dL Creatinine (0.55-1.02) mg/dL Est Cr Clr Drug Dosing mL/min Estimated GFR (MDRD) (>60) BUN/Creatinine Ratio (9-20) Glucose (80-116) mg/dL Calcium (8.6-10.2) mg/dL Magnesium (1.8-2.5) mg/dL Total Bilirubin (0.1-1.3) mg/dL AST (5-25) IU/L ALT (12-36) U/L Alkaline Phosphatase (56-112) IU/L C-Reactive Protein < 0.2 L (0.5-0.9) mg/dL Total Protein (6.0-8.0) g/dL Albumin (3.5-5.2) g/dL Globulin g/dL Albumin/Globulin Ratio Lipase (73-393) U/L Urine Color Yellow (YELLOW) Urine Appearance Clear (CLEAR) Urine pH 5.0 (5.0-6.5) Ur Specific [place] 1.020 (1.010-1.025) Urine Protein 30 H (NEGATIVE) mg/dL Urine Glucose (UA) Normal (NORMAL) mg/dL Urine Ketones 15 H (NEGATIVE) mg/dL Urine Occult Blood Large H (NEGATIVE) Urine Nitrite Negative (NEGATIVE) Urine Bilirubin Negative (NEGATIVE) Urine Urobilinogen Normal (NEGATIVE) mg/dL Ur Leukocyte Esterase Large H (NEGATIVE) Urine RBC 0-5 (0-5) Urine WBC 10-20 H (0-5) Ur Squamous Epith Cells Few H (NS,R,O) Urine Bacteria Rare H (NS) 06/09/21 06/09/21 Range/Units 20:50 20:50 WBC (3.0-10.3) x10-3/uL RBC (3.60-5.20) x10(6)uL Hgb (11.4-15.5) g/dL Hct (34.2-48.2) % MCV (76.7-100.5) fL MCH (23.9-33.9) pg MCHC (31.9-34.8) g/dL RDW (12.3-16.5) % Plt Count (151-488) x10(3)uL MPV (7.1-12.4) fL Neut % (Auto) (30.8-76.2) % Lymph % (Auto) (18.4-52.1) % [place] % (Auto) (4.4-15.7) % Eos % (Auto) (0.6-8.1) % Baso % (Auto) (0.2-1.5) % Neut # (Auto) (1.5-6.3) x10-3/uL Lymph # (Auto) (1.0-4.4) x10-3/uL [place] # (Auto) (0.3-1.0) x10-3/uL Eos # (Auto) (0.0-0.8) x10-3/uL Baso # (Auto) (0.0-0.1) x10-3/uL Sodium 145 (135-145) mmol/L Potassium 3.8 (3.5-5.3) mmol/L Chloride 107 (100-110) mmol/L Carbon Dioxide 30 (21-32) mmol/L BUN 31 H (7-18) mg/dL Creatinine 1.7 H (0.55-1.02) mg/dL Est Cr Clr Drug Dosing 37.72 mL/min Estimated GFR (MDRD) 31 L (>60) BUN/Creatinine Ratio 18.2 (9-20) Glucose 129 H (80-116) mg/dL Calcium 9.1 (8.6-10.2) mg/dL Magnesium 2.2 (1.8-2.5) mg/dL Total Bilirubin 0.5 (0.1-1.3) mg/dL AST 17 D (5-25) IU/L ALT 34 D (12-36) U/L Alkaline Phosphatase 60 (56-112) IU/L C-Reactive Protein (0.5-0.9) mg/dL Total Protein 6.8 (6.0-8.0) g/dL Albumin 3.9 (3.5-5.2) g/dL Globulin 2.9 g/dL Albumin/Globulin Ratio 1.3 Lipase 120 (73-393) U/L Urine Color (YELLOW) Urine Appearance (CLEAR) Urine pH (5.0-6.5) Ur Specific [place] (1.010-1.025) Urine Protein (NEGATIVE) mg/dL Urine Glucose (UA) (NORMAL) mg/dL Urine Ketones (NEGATIVE) mg/dL Urine Occult Blood (NEGATIVE) Urine Nitrite (NEGATIVE) Urine Bilirubin (NEGATIVE) Urine Urobilinogen (NEGATIVE) mg/dL Ur Leukocyte Esterase (NEGATIVE) Urine RBC (0-5) Urine WBC (0-5) Ur Squamous Epith Cells (NS,R,O) Urine Bacteria (NS) Meds: Medications Discontinued Medications Generic Name Dose Route Start Last Admin Trade Name Freq PRN Reason Stop Dose Admin Hydromorphone HCl 1 mg 06/09/21 20:34 06/09/21 20:50 Hydromorphone 2 Mg/Ml Sdv IVPUSH 06/09/21 20:35 1 mg ONETIME ONE Administration Hydromorphone HCl 1 mg 06/09/21 21:56 06/09/21 22:13 Hydromorphone 2 Mg/Ml Sdv IVPUSH 06/09/21 21:57 1 mg ONETIME ONE Administration Sodium Chloride 1,000 mls @ 999 mls/hr 06/09/21 20:34 06/09/21 20:45 Normal Saline IV 06/09/21 21:34 999 mls/hr .BOLUS ONE Administration Sodium Chloride 1,000 mls @ 125 mls/hr 06/09/21 20:45 06/09/21 21:50 Normal Saline IV 125 mls/hr ASDIRECTED JEAN Administration Ondansetron HCl 4 mg 06/09/21 20:34 06/09/21 20:52 Ondansetron 4 Mg/2 Ml Sdv IVPUSH 06/09/21 20:35 4 mg ONETIME ONE Administration Sodium Chloride 10 ml 06/09/21 20:21 Sodium Chloride 0.9% 10 Ml Syringe FLUSH ASDIRECTED PRN Keep Vein Open - Re-Assessments/Exams Free Text/Narrative Re-Assessment/Exam: 06/09/21 21:48: All of the patient's blood tests were reassuringly normal or unchanged except for creatinine which is slightly increased from previous. With her vomiting and diarrhea, this creatinine elevation is probably due to dehydration. She has received a 1 L bolus of normal saline IV and she has also received Dilaudid 1 mg IV and Zofran 4 mg IV. She does feel somewhat improved after this but her pain is still at an 8/10 level. Her abdomen remains soft that she is tender to palpation in her right upper quadrant. There is no mass. I will give the patient another 1 mg dose of Dilaudid IV. I have also ordered a CRP to be added to her labs. Without any elevation in her LFTs, lipase or inflammatory markers, I would feel that control of her pain and a number of pain medications with some antinausea medications with discharge to follow-up with Dr. Sun as scheduled on 06/12/2021 would be appropriate. I discussed this with the patient and she would be agreeable to this plan. She also had a urinalysis that again met criteria for culture. I set it up for culture but initially I had recommended to the patient that we do a catheterized urinary specimen to get a better and glass cleaner specimen for culture but she refused this. 06/09/21 22:50: Patient now reports that her pain is much improved. It is now down to a 2-3/10. She does appear to be much more comfortable. I will plan on giving the patient a take home pack of hydrocodone 5/325 and Zofran 4 mg ODT. I'll also give her limited number prescription of both of these as well. She is to keep her follow-up appointment with Dr. Sun on 06/12/2021. Precautions and reasons for return to the emergency department were discussed with the patient while she was in the emergency department and were detailed in the patient's discharge instructions. Departure - Departure Time of Disposition: 22:57 Disposition: Home, Self-Care 01 Condition: Good (Improved) Clinical Impression: Biliary colic, Dehydration - Discharge Information Prescriptions: Hydrocodone/Acetaminophen [Hydrocodon-Acetaminophen 5-325] 1 - 2 tab PO Q6H PRN #8 tablet PRN Reason: Moderate to severe pain Ondansetron [Zofran ODT] 4 mg PO Q6H PRN #6 tab.dis PRN Reason: Nausea or vomiting Instructions: Biliary Colic, Adult, Nausea and Vomiting, Adult, [id number], Dehydration, Adult, [id number], Pain Medicine Instructions, [id number] Referrals: PCP,None [Primary Care Provider] - Forms: ED Department Discharge Additional Instructions: All of your blood tests were reassuring or unchanged from previous except for your creatinine which measures kidney function and it was slightly worse than before. I think this represents dehydration. We corrected this somewhat by giving you IV fluids. I feel that your symptoms are most probably from gallstones. You do not appear to have a serious infection or a problem that needs intervention emergently. You do need to keep your appointment with Dr. Sun on 06/12/2021. You need to increase your fluid intake. Medication as prescribed (hydrocodone 5/325, Zofran 4 mg ODT). Back to the emergency department for marked increase in pain, unrelenting vomiting, fever or any other concerning signs or symptoms. Sepsis Event Note (ED) - Focused Exam Vital Signs: Vital Signs Temp Pulse Resp BP Pulse Ox 06/09/21 23:19 36.1 C 86 18 150/90 H 98 06/09/21 19:55 36.6 C 91 18 142/84 H 97 - My Orders Last 24 Hours: My Active Orders 06/09/21 20:21 Peripheral IV Insertion Adult [OM.PC] Routine 06/09/21 20:30 CULTURE URINE [RM] Stat - Assessment/Plan Last 24 Hours: My Active Orders 06/09/21 20:21 Peripheral IV Insertion Adult [OM.PC] Routine 06/09/21 20:30 CULTURE URINE [RM] Stat
[2021-06-09] MEDS ORDERED: HYDROmorphone 2 MG/ML SDV IVPUSH ONE ×2 (20:34→21:56)
[2021-06-09] MEDS ORDERED: Ondansetron 4 MG/2 ML SDV IVPUSH ONE (20:34)
[2021-06-09] MEDS ORDERED: Sodium Chloride 0.9% 1,000 ML IV ONE (20:34)
[2021-06-09] MEDS ORDERED: Sodium Chloride 0.9% 1,000 ML IV SCH (20:45)
[2021-06-09 23:27] VITALS: BP 150/90; PULSE 86
== END 2021-06-09 23:20 | disposition home or self-care (01) ==
LOC: FB.ED 19:55
DX: K80.50 Calculus of bile duct without cholangitis or cholecystitis without obstruction (principal); E86.0 Dehydration; E78.00 Pure hypercholesterolemia, unspecified; I10 Essential (primary) hypertension; J44.9 Chronic obstructive pulmonary disease, unspecified; E11.9 Type 2 diabetes mellitus without complications; Z91.040 Latex allergy status; Z88.8 Allergy status to other drugs, medicaments and biological substances; Z79.899 Other long term (current) drug therapy
CPT/HCPCS: 36415; 80053; 81001; 83690; 83735; 85025; 86140; 87086; 96374; 96375; 96376; 99284; A9270; J1170; J2405; J7030

== ENCOUNTER 2021-06-16 23:45 | Emergency (ER) | payer MEDICARE, MEDICAID ==
[2021-06-16] MEDS ORDERED: HYDROmorphone 2 MG/ML SDV IM ONE (23:57)
--- NOTE | 2021-06-17 00:03 | EDM.PDOC ---
ED HPI GENERAL MEDICAL PROBLEM - General Stated Complaint: GULL STONES Time Seen by Provider: 06/17/21 00:01 Source of Information: Reports: Patient History Limitations: Reports: No Limitations - History of Present Illness INITIAL COMMENTS - FREE TEXT/NARRATIVE: Mare complains of RUQ abd pain. Moderate to severe pain,associated with dyspepsia. She has gallstones and is due to have them removed on Friday. no other systemic symptoms,no vomiting. - Related Data Allergies Allergy/AdvReac Type Severity Reaction Status Date / Time latex Allergy Cannot Verified 06/09/21 20:11 Remember propoxyphene napsylate Allergy Itching Verified 06/09/21 20:11 [From Darvocet-N] Home Meds: Home Meds atorvaSTATin [Lipitor] 40 mg PO BEDTIME 04/29/15 [History] Hydrocodone/Acetaminophen [Hydrocodon-Acetaminophen 5-325] 1 each PO Q4H PRN #10 tablet 05/19/21 [Rx] Gabapentin [Neurontin] 100 mg PO BID 06/09/21 [History] Hydrocodone/Acetaminophen [HYDROcodone-Acetaminophen 5-325 MG] 1 - 2 tab PO Q6H PRN #8 tablet 06/09/21 [Rx] Ondansetron [Zofran ODT] 4 mg PO Q6H PRN #6 tab.dis 06/09/21 [Rx] Semaglutide [Ozempic] 1 mg SQ WEEKLY 06/09/21 [History] Zolpidem Tartrate [Zolpidem Tartrate ER] 6.25 mg PO BEDTIME 06/09/21 [History] amLODIPine [Norvasc] 5 mg PO DAILY 06/09/21 [History] Past Medical History HEENT History: Reports: Impaired Vision Cardiovascular History: Reports: High Cholesterol, Hypertension, Other (See Below) Other Cardiovascular History: enlarged heart 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, COPD Genitourinary History: Reports: Renal Calculus, Renal Disease Other Genitourinary History: Recent dx of Stage IV kidney disease. 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: Musculoskeletal History: Reports: Fibromyalgia, Osteoarthritis Psychiatric History: Reports: Anxiety, Depression Endocrine/Metabolic History: Reports: Diabetes, Type II - Infectious Disease History Infectious Disease History: Reports: MRSA - Past Surgical History Musculoskeletal Surgical History: Reports: Carpal Tunnel (Bilateral), Knee Replacement Social & Family History - Family History Family Medical History: No Pertinent Family History - Caffeine Use Caffeine Use: Reports: None - Living Situation & Occupation Living situation: Reports: ED ROS GENERAL - Review of Systems Review Of Systems: Comprehensive ROS is negative, except as noted in HPI. ED EXAM, GI/ABD - Physical Exam Exam: See Below Exam Limited By: No Limitations General Appearance: Alert, WD/WN, No Apparent Distress Respiratory/Chest: No Respiratory Distress GI/Abdominal Exam: Normal Bowel Sounds, Soft, Tender (RLQ). No: Non-Tender, Rebound Course - Orders/Labs/Meds Meds: Medications Discontinued Medications Generic Name Dose Route Start Last Admin Trade Name Freq PRN Reason Stop Dose Admin Hydromorphone HCl 2 mg 06/16/21 23:57 06/17/21 00:05 Hydromorphone 2 Mg/Ml Sdv IM 06/16/21 23:58 2 mg ONETIME ONE Administration Departure - Departure Time of Disposition: 00:59 Disposition: Home, Self-Care 01 Clinical Impression: Biliary colic - Discharge Information Instructions: Cholelithiasis Referrals: Angela Og PA [Primary Care Provider] - (PRN) Care Plan Goals: You were given a dose of Dilaudid this evening for pain control. Take Tylenol as needed. Continue with plans for surgery this coming week. Return to ER as needed. - Problem List & Annotations (1) Biliary colic SNOMED Code(s): 24467137 Code(s): K80.50 - CALCULUS OF BILE DUCT W/O CHOLANGITIS OR CHOLECYST W/O OBST Status: Acute Current Visit: No - Problem List Review Problem List Initiated/Reviewed/Updated: Yes - Assessment/Plan Plan: Dilaudid 2 mg IM
[2021-06-17 01:33] VITALS: PULSE 88
[2021-06-17 01:34] VITALS: BP 156/95
== END 2021-06-17 00:15 | disposition home or self-care (01) ==
LOC: FB.ED 23:45
DX: K80.50 Calculus of bile duct without cholangitis or cholecystitis without obstruction (principal); E78.00 Pure hypercholesterolemia, unspecified; I12.9 Hypertensive chronic kidney disease with stage 1 through stage 4 chronic kidney disease, or unspecified chronic kidney disease; E11.22 Type 2 diabetes mellitus with diabetic chronic kidney disease; N18.4 Chronic kidney disease, stage 4 (severe); J44.9 Chronic obstructive pulmonary disease, unspecified; M19.90 Unspecified osteoarthritis, unspecified site; Z91.040 Latex allergy status; Z88.8 Allergy status to other drugs, medicaments and biological substances; Z79.899 Other long term (current) drug therapy
CPT/HCPCS: 96372; 99283; J1170

== ENCOUNTER 2021-06-19 09:47 | Day surgery (SDC) | payer MEDICARE, MEDICAID ==
[2021-06-19] MEDS ORDERED: Rocuronium 50 MG/5 ML Vial IV ONE (09:48)
[2021-06-19] MEDS ORDERED: Lactated Ringers 1,000 ML IV ONE (09:48)
[2021-06-19] MEDS ORDERED: Lidocaine 2% 5 ML SDV INJECT ONE (09:48)
[2021-06-19] MEDS ORDERED: ePHEDrine 50 MG/ML SDV IV ONE (09:48)
[2021-06-19] MEDS ORDERED: Ondansetron 4 MG/2 ML SDV IVPUSH ONE (09:48)
[2021-06-19] MEDS ORDERED: Midazolam 1 MG/ML 2 ML SDV IV ONE (09:48)
[2021-06-19] MEDS ORDERED: Propofol 200 MG/20 ML SDV IV ONE (09:48)
[2021-06-19] MEDS ORDERED: Glycopyrrolate 0.2 MG/ML 5 ML MDV IV ONE (09:48)
[2021-06-19] MEDS ORDERED: Dexamethasone 4 MG/ML 5 ML MDV IVPUSH ONE (09:48)
[2021-06-19] MEDS ORDERED: Neostigmine Methylsulfate 10 MG/10 ML MDV IVPUSH ONE (09:48)
[2021-06-19] MEDS ORDERED: fentaNYL 100 MCG/2 ML SDV IV ONE (09:48)
[2021-06-19] MEDS ORDERED: Succinylcholine 200 MG/10 ML MDV IV ONE (09:48)
[2021-06-19] MEDS ORDERED: HYDROmorphone 2 MG/ML SDV IV ONE (09:48)
[2021-06-19] MEDS ORDERED: Lactated Ringers 1,000 ML IV SCH (10:00)
[2021-06-19] MEDS ORDERED: Sodium Chloride 0.9% 10 ML Syringe FLUSH PRN (10:00)
--- NOTE | 2021-06-19 12:12 | PCM.HPR ---
H & P Addendum review - H & P Addendum Review Date of Original H & P: 06/12/21 Date Reviewed: 06/19/21 Time Reviewed: 12:12 Patient was Examined: No Changes
--- NOTE | 2021-06-19 14:25 | PCM.OPNOTE ---
- General Post-Op/Procedure Note Date of Surgery/Procedure: 06/19/21 Operative Procedure(s): Lap Daniela Findings: Dictated Pre Op Diagnosis: Symptomatic cholelithiasis/cholecystitis Post-Op Diagnosis: Same Anesthesia Technique: General ET Tube Primary Surgeon: Michael Sun Pathology: GB EBL in mLs: 20 Complications: None Condition: Good
[2021-06-19] MEDS ORDERED: Acetaminophen/HYDROcodone 325-5 MG Tab PO PRN (14:27)
[2021-06-19] MEDS ORDERED: Ondansetron 8 MG Tab.DIS PO ONE (15:15)
[2021-06-19] MEDS ORDERED: fentaNYL 100 MCG/2 ML SDV IVPUSH PRN (15:18)
[2021-06-19 18:19] VITALS: BP 140/79; PULSE 90
--- NOTE | 2021-06-20 07:15 | OR ---
DATE OF OPERATION: 06/19/2021 SURGEON: Michael Sun MD PREOPERATIVE DIAGNOSES: Symptomatic cholelithiasis and cholecystitis. POSTOPERATIVE DIAGNOSES: Symptomatic cholelithiasis and cholecystitis. PROCEDURE: Laparoscopic cholecystectomy. ANESTHESIA: General. DESCRIPTION OF PROCEDURE: The patient was brought to the operating room where general endotracheal anesthesia was administered. The abdomen was prepped and draped sterilely. An infraumbilical incision was made and extended into the peritoneal cavity without difficulty. The Keshia cannulator was introduced and pneumoperitoneum obtained. The remaining three 5 mm ports were placed in the usual positions. The gallbladder had some omental adhesions to its undersurface that were stripped down bluntly or cauterized. Gallbladder was grasped and retracted cephalad. Gallbladder was large and had a large stone impacted in the neck, which made dissection and visualization more difficult. I was able to dissect off the cystic artery without difficulty, which was overlying the cystic duct. Once the anatomy of the artery was confirmed, I doubly clipped it proximally and once distally, and then transected it. This helped visualize the cystic duct. Slow careful dissection was done around the neck of the gallbladder to free this up with dense fibrotic adhesions present. Once I got around the gallbladder base of the neck completely, I carefully worked down on the cystic duct to get this thin enough so a clip could be placed. The cystic duct was doubly clipped proximally and once distally, and then transected. Gallbladder was then taken off the bed of the liver with difficulty and the capsule of the gallbladder was adherent to the liver. There was minimal oozing from the bed of the liver that was controlled with electrocautery. Some vessels also coursed along the gallbladder posteriorly that were clipped as I dissected off. Once the gallbladder was completely freed up, it was brought out part way through the umbilical incision and required opening and crushing and removing fragments of the stones. Once the gallbladder was removed completely, the bed of the liver and right upper quadrant were inspected. This appeared to be hemostatic, but because of the oozing, I placed a piece of Avitene. Right upper quadrant was irrigated and return was clear. Ports were removed under direct vision and remained hemostatic. Umbilical fascia was closed with figure-of- eight 0 Vicryl. Skin was closed with 4-0 Vicryl subcuticular sutures. Benzoin and Steri-Strips were placed and Band-Aids applied. The patient tolerated the procedure well. Estimated blood loss 20 mL. She returned to postanesthesia in stable condition. /[id number] FATMATA/ERIK
== END 2021-06-19 16:50 | disposition home or self-care (01) ==
LOC: FB.SDS 09:47 → FB.MS 15:37 → FB.SDS 16:50
PROVIDERS: ATTEND Surgery
DX: K80.10 Calculus of gallbladder with chronic cholecystitis without obstruction (principal); N39.0 Urinary tract infection, site not specified; R31.9 Hematuria, unspecified; N20.0 Calculus of kidney; E66.9 Obesity, unspecified; M54.6 Pain in thoracic spine; E03.9 Hypothyroidism, unspecified; E11.9 Type 2 diabetes mellitus without complications; I10 Essential (primary) hypertension; J44.9 Chronic obstructive pulmonary disease, unspecified; J45.909 Unspecified asthma, uncomplicated; Z88.6 Allergy status to analgesic agent; Z68.38 Body mass index [BMI] 38.0-38.9, adult; Z91.040 Latex allergy status
CPT/HCPCS: 00790; 47562; 82947; 88304; 94150; A9270; J0330; J1100; J1170; J2250; J2405; J2704; J2710; J3010; J3490; J7120

== ENCOUNTER 2021-12-11 21:43 | Emergency (ER) | payer MEDICARE, MEDICAID ==
[2021-12-11] MEDS ORDERED: Aspirin 81 MG Tab.Chew PO ONE (21:57)
[2021-12-11 22:35] VITALS: BP 150/81; PULSE 79
== END 2021-12-12 00:46 | disposition home or self-care (01) ==
LOC: FB.ED 21:43
DX: R07.89 Other chest pain (principal); R06.02 Shortness of breath; E78.00 Pure hypercholesterolemia, unspecified; I12.9 Hypertensive chronic kidney disease with stage 1 through stage 4 chronic kidney disease, or unspecified chronic kidney disease; E11.22 Type 2 diabetes mellitus with diabetic chronic kidney disease; N18.9 Chronic kidney disease, unspecified; J44.9 Chronic obstructive pulmonary disease, unspecified; K21.9 Gastro-esophageal reflux disease without esophagitis; E03.9 Hypothyroidism, unspecified; E66.9 Obesity, unspecified; Z68.30 Body mass index [BMI] 30.0-30.9, adult; Z86.73 Personal history of transient ischemic attack (TIA), and cerebral infarction without residual deficits; Z91.040 Latex allergy status; Z88.5 Allergy status to narcotic agent; Z88.8 Allergy status to other drugs, medicaments and biological substances; Z79.899 Other long term (current) drug therapy; Z20.822 Contact with and (suspected) exposure to COVID-19
CPT/HCPCS: 36415; 71046; 80053; 83880; 84484; 85025; 85379; 93005; 99285-25; A9270-GY; U0002

== ENCOUNTER 2023-10-14 07:58 | Day surgery (SDC) | payer MEDICARE, MEDICAID ==
[2023-10-14] MEDS ORDERED: fentaNYL 100 MCG/2 ML SDV IV ONE (07:59)
[2023-10-14] MEDS ORDERED: Sodium Chloride 0.9% 10 ML Syringe IV ONE (07:59)
[2023-10-14] MEDS ORDERED: Midazolam 1 MG/ML 2 ML SDV IV ONE (07:59)
[2023-10-14] MEDS ORDERED: Sodium Chloride 0.9% 10 ML Syringe FLUSH PRN (08:00)
[2023-10-14] MEDS ORDERED: Lactated Ringers 1,000 ML IV SCH (08:00)
[2023-10-14] MEDS ORDERED: acetaZOLAMIDE 500 MG Cap.ER PO ONE (10:00)
[2023-10-14 12:29] VITALS: BP 160/91; PULSE 76
== END 2023-10-14 10:41 | disposition home or self-care (01) ==
LOC: FB.SDS 07:58
PROVIDERS: ATTEND Ophthalmology
DX: E11.36 Type 2 diabetes mellitus with diabetic cataract (principal); E11.22 Type 2 diabetes mellitus with diabetic chronic kidney disease; I13.10 Hypertensive heart and chronic kidney disease without heart failure, with stage 1 through stage 4 chronic kidney disease, or unspecified chronic kidney disease; N18.4 Chronic kidney disease, stage 4 (severe); J45.20 Mild intermittent asthma, uncomplicated; J44.9 Chronic obstructive pulmonary disease, unspecified; E11.42 Type 2 diabetes mellitus with diabetic polyneuropathy; E03.9 Hypothyroidism, unspecified; K21.9 Gastro-esophageal reflux disease without esophagitis; E66.01 Morbid (severe) obesity due to excess calories; Z68.41 Body mass index [BMI] 40.0-44.9, adult; E78.2 Mixed hyperlipidemia; R80.9 Proteinuria, unspecified; M79.7 Fibromyalgia; Z79.85 Long-term (current) use of injectable non-insulin antidiabetic drugs; Z79.899 Other long term (current) drug therapy; Z91.040 Latex allergy status; Z88.8 Allergy status to other drugs, medicaments and biological substances
CPT/HCPCS: A9270-GY; J2250; J3010; J3490; V2632

== ENCOUNTER 2023-10-28 07:38 | Day surgery (SDC) | payer MEDICARE, MEDICAID ==
[~2023-10-28 07:38] MED LIST: Lactated Ringers 1,000 ML IV SCH; Sodium Chloride 0.9% 10 ML Syringe FLUSH PRN
[2023-10-28] MEDS ORDERED: Midazolam 1 MG/ML 2 ML SDV IV ONE (07:39)
[2023-10-28] MEDS ORDERED: fentaNYL 100 MCG/2 ML SDV IV ONE (07:39)
[2023-10-28] MEDS ORDERED: acetaZOLAMIDE 500 MG Cap.ER PO ONE (09:30)
[2023-10-28 10:35] VITALS: BP 128/88; PULSE 80
== END 2023-10-28 10:25 | disposition home or self-care (01) ==
LOC: FB.SDS 07:38
PROVIDERS: ATTEND Ophthalmology
DX: E11.36 Type 2 diabetes mellitus with diabetic cataract (principal); I13.10 Hypertensive heart and chronic kidney disease without heart failure, with stage 1 through stage 4 chronic kidney disease, or unspecified chronic kidney disease; E11.22 Type 2 diabetes mellitus with diabetic chronic kidney disease; N18.32 Chronic kidney disease, stage 3b; J45.20 Mild intermittent asthma, uncomplicated; E11.42 Type 2 diabetes mellitus with diabetic polyneuropathy; J44.9 Chronic obstructive pulmonary disease, unspecified; E78.2 Mixed hyperlipidemia; E03.9 Hypothyroidism, unspecified; K21.9 Gastro-esophageal reflux disease without esophagitis; M79.7 Fibromyalgia; E66.01 Morbid (severe) obesity due to excess calories; Z68.41 Body mass index [BMI] 40.0-44.9, adult; Z79.899 Other long term (current) drug therapy; Z91.040 Latex allergy status; Z88.5 Allergy status to narcotic agent
CPT/HCPCS: 66984; 82947; A9270; J2250; J3010; J7120; V2632

== ENCOUNTER 2024-09-14 23:58 | Emergency (ER) | payer MEDICARE, MEDICAID ==
[2024-09-14] MEDS ORDERED: Albuterol 6.7 GM Inhaler INH ONE (23:59)
[2024-09-15 00:09] VITALS: BP 143/62; PULSE 77
== END 2024-09-15 00:22 | disposition home or self-care (01) ==
LOC: FB.ED 23:58
DX: J45.909 Unspecified asthma, uncomplicated (principal); I10 Essential (primary) hypertension; E78.00 Pure hypercholesterolemia, unspecified; J44.9 Chronic obstructive pulmonary disease, unspecified; K21.9 Gastro-esophageal reflux disease without esophagitis; E11.9 Type 2 diabetes mellitus without complications; E66.9 Obesity, unspecified; Z86.73 Personal history of transient ischemic attack (TIA), and cerebral infarction without residual deficits; Z79.899 Other long term (current) drug therapy; Z79.84 Long term (current) use of oral hypoglycemic drugs; Z88.6 Allergy status to analgesic agent; Z88.5 Allergy status to narcotic agent; Z91.040 Latex allergy status
CPT/HCPCS: 99283; 99284; A9270-GY

== ENCOUNTER 2025-04-03 07:47 | Emergency (ER) | payer MEDICARE, MEDICAID ==
[2025-04-03] MEDS ORDERED: Sodium Chloride 0.9% 10 ML Syringe FLUSH PRN (08:09)
[2025-04-03] MEDS: Morphine 2 MG/ML SYRINGE IVPUSH ONE (08:23)
[2025-04-03] MEDS: Sodium Chloride 0.9% 1,000 ML IV SCH (08:23)
[2025-04-03] MEDS: Ondansetron 4 MG/2 ML SDV IVPUSH ONE (08:24)
[2025-04-03] MEDS: Ketorolac 30 MG/ML SDV IVPUSH ONE (08:26)
[2025-04-03 08:31] LABS: BILIRUBIN,URINE NEGATIVE (NEGATIVE); GLUCOSE,URINE NORMAL (NORMAL); KETONES,URINE NEGATIVE (NEGATIVE); LEUKOCYTE ESTERASE,URINE NEGATIVE (NEGATIVE); NITRITE,URINE NEGATIVE (NEGATIVE); OCCULT BLOOD,URINE TRACE (NEGATIVE); PROTEIN,URINE 30 mg/dL (NEGATIVE); UROBILINOGEN,URINE NORMAL (NEGATIVE)
[2025-04-03 08:33] LABS: APPEARANCE,URINE CLEAR (CLEAR); COLOR,URINE YELLOW (YELLOW)
[2025-04-03 08:35] LABS: BASOPHILS PERCENT AUTO 0.1 % (0.2-1.5); BLOOD UREA NITROGEN,BUN 39 mg/dL (7-18); BUN/CREATININE RATIO 20.5 (9-20); CALCIUM 8.9 mg/dL (8.6-10.2); CARBON DIOXIDE,CO2 30 mmol/L (21-32); CHLORIDE,CL 108 mmol/L (100-110); CREATININE 1.9 mg/dL (0.55-1.02); EST CRCL DRUG DOSING (CG) 34.48 mL/min; ESTIMATED GFR 30 mL/min (>60); GLUCOSE RANDOM 104 mg/dL (80-116); HEMATOCRIT 36.3 % (34.2-48.2); LYMPHOCYTES ABSOLUTE AUTO 1.6 x10-3/uL (1.0-4.4); LYMPHOCYTES PERCENT AUTO 30.4 % (18.4-52.1); MEAN CORPUSCULAR HEMOGLOBIN 32.3 pg (23.9-33.9); MEAN CORPUSCULAR HGB CONC 35.9 g/dL (31.9-34.8); MEAN PLATELET VOLUME 7.8 fL (7.1-12.4); MONOCYTES ABSOLUTE AUTO 0.4 x10-3/uL (0.3-1.0); MONOCYTES PERCENT AUTO 7.1 % (4.4-15.7); NEUTROPHILS ABSOLUTE AUTO 3.4 x10-3/uL (1.5-6.3); NEUTROPHILS PERCENT AUTO 62.4 % (30.8-76.2); PLATELET COUNT,PLT 204 x10(3)uL (151-488); RED BLOOD CELL COUNT 4.04 x10(6)uL (3.60-5.20); RED CELL DISTRIBUTION WIDTH 13.9 % (12.3-16.5); SODIUM,NA 145 mmol/L (135-145); WHITE BLOOD CELL COUNT,WBC 5.4 x10-3/uL (3.0-10.3)
[2025-04-03 08:40] LABS: BACTERIA,URINE FEW (NS); SQUAMOUS EPITHELIAL CELLS,UR OCCASIONAL (NS,R,O); WBC,URINE 0-5 (0-5)
[2025-04-03 08:41] LABS: RBC,URINE 0-5 (0-5)
[2025-04-03] MEDS: Acetaminophen/oxyCODONE 325-5 MG Tab PO STA (08:52)
[2025-04-03] MEDS: Tamsulosin 0.4 MG Cap.ER PO ONE (08:52)
[2025-04-03 10:20] VITALS: BP 142/85; PULSE 81
== END 2025-04-03 10:12 | disposition home or self-care (01) ==
LOC: FB.ED 07:47
DX: N20.0 Calculus of kidney (principal); I10 Essential (primary) hypertension; E78.00 Pure hypercholesterolemia, unspecified; J44.89 Other specified chronic obstructive pulmonary disease; E11.9 Type 2 diabetes mellitus without complications; E03.9 Hypothyroidism, unspecified; Z86.73 Personal history of transient ischemic attack (TIA), and cerebral infarction without residual deficits; Z91.040 Latex allergy status; Z88.5 Allergy status to narcotic agent; Z88.8 Allergy status to other drugs, medicaments and biological substances; Z79.899 Other long term (current) drug therapy; Z79.85 Long-term (current) use of injectable non-insulin antidiabetic drugs
CPT/HCPCS: 74176; 80048; 81001; 85025; 96361; 96374; 96375; 99284; A9270; J1885; J2270; J2405; J7030

== ENCOUNTER 2025-05-03 22:44 | Emergency (ER) | payer MEDICARE, MEDICAID ==
[2025-05-03] MEDS ORDERED: Acetaminophen/oxyCODONE 325-5 MG Tab PO ONE (22:45)
[2025-05-03] MEDS ORDERED: Sodium Chloride 0.9% 10 ML Syringe FLUSH PRN (22:55)
[2025-05-03] MEDS: Morphine 4 MG/ML VIAL IVPUSH ONE (23:17)
[2025-05-03] MEDS: Ondansetron 4 MG/2 ML SDV IVPUSH ONE (23:18)
[2025-05-03] MEDS: Sodium Chloride 0.9% 1,000 ML IV SCH (23:18)
[2025-05-03 23:29] LABS: BASOPHILS PERCENT AUTO 0.2 % (0.2-1.5); EOSINOPHILS PERCENT AUTO 0.1 % (0.6-8.1); HEMATOCRIT 36.1 % (34.2-48.2); HEMOGLOBIN 12.8 g/dL (11.4-15.5); LYMPHOCYTES ABSOLUTE AUTO 1.6 x10-3/uL (1.0-4.4); LYMPHOCYTES PERCENT AUTO 32.9 % (18.4-52.1); MEAN CORPUSCULAR HEMOGLOBIN 31.3 pg (23.9-33.9); MEAN CORPUSCULAR HGB CONC 35.4 g/dL (31.9-34.8); MEAN CORPUSCULAR VOLUME 88.5 fL (76.7-100.5); MONOCYTES ABSOLUTE AUTO 0.3 x10-3/uL (0.3-1.0); NEUTROPHILS ABSOLUTE AUTO 2.9 x10-3/uL (1.5-6.3); NEUTROPHILS PERCENT AUTO 59.8 % (30.8-76.2); PLATELET COUNT,PLT 192 x10(3)uL (151-488); RED BLOOD CELL COUNT 4.08 x10(6)uL (3.60-5.20); RED CELL DISTRIBUTION WIDTH 13.7 % (12.3-16.5); WHITE BLOOD CELL COUNT,WBC 4.8 x10-3/uL (3.0-10.3)
[2025-05-03 23:38] LABS: A/G RATIO 1.5; ALANINE AMINOTRANSFERASE,ALT 69 U/L (12-36); ALBUMIN 4.4 g/dL (3.5-5.2); ALKALINE PHOSPHATASE 93 IU/L (56-112); ASPARTATE AMNIOTRANSFERASE,AST 33 IU/L (5-25); BILIRUBIN TOTAL 0.8 mg/dL (0.1-1.3); BLOOD UREA NITROGEN,BUN 40 mg/dL (7-18); CALCIUM 9.3 mg/dL (8.6-10.2); CARBON DIOXIDE,CO2 29 mmol/L (21-32); CHLORIDE,CL 106 mmol/L (100-110); EST CRCL DRUG DOSING (CG) 30.14 mL/min; ESTIMATED GFR 27 mL/min (>60); GLUCOSE RANDOM 141 mg/dL (80-116); PROTEIN TOTAL,TP 7.3 g/dL (6.0-8.0); SODIUM,NA 142 mmol/L (135-145)
[2025-05-03 23:40] LABS: CREATININE 2.1 mg/dL (0.55-1.02)
[2025-05-04 00:32] LABS: APPEARANCE,URINE CLEAR (CLEAR); BILIRUBIN,URINE NEGATIVE (NEGATIVE); COLOR,URINE YELLOW (YELLOW); GLUCOSE,URINE NORMAL (NORMAL); KETONES,URINE NEGATIVE (NEGATIVE); LEUKOCYTE ESTERASE,URINE NEGATIVE (NEGATIVE); NITRITE,URINE NEGATIVE (NEGATIVE); OCCULT BLOOD,URINE NEGATIVE (NEGATIVE); PROTEIN,URINE NEGATIVE (NEGATIVE); UROBILINOGEN,URINE NORMAL (NEGATIVE)
[2025-05-04 01:04] VITALS: BP 140/86; PULSE 78
== END 2025-05-03 23:05 | disposition home or self-care (01) ==
LOC: FB.ED 22:44
DX: N20.0 Calculus of kidney (principal); I12.9 Hypertensive chronic kidney disease with stage 1 through stage 4 chronic kidney disease, or unspecified chronic kidney disease; N18.9 Chronic kidney disease, unspecified; E78.00 Pure hypercholesterolemia, unspecified; J44.89 Other specified chronic obstructive pulmonary disease; K21.9 Gastro-esophageal reflux disease without esophagitis; E11.9 Type 2 diabetes mellitus without complications; E03.9 Hypothyroidism, unspecified; E66.9 Obesity, unspecified; Z68.34 Body mass index [BMI] 34.0-34.9, adult; Z90.49 Acquired absence of other specified parts of digestive tract; Z79.899 Other long term (current) drug therapy; Z91.040 Latex allergy status; Z88.8 Allergy status to other drugs, medicaments and biological substances
CPT/HCPCS: 36415; 80053; 83690; 85025; 96361; 96374; 96375; 99284-25; A9270-GY; J2270; J2405; J7030